=== PATIENT | male | born 1985 | race Caucasian/White ===

== ENCOUNTER 2019-02-14 20:57 | Emergency (ER) | payer BC ==
--- NOTE | 2019-02-14 21:30 | EDM.PDOC ---
ED HPI GENERAL MEDICAL PROBLEM - General Chief Complaint: Abdominal Pain Stated Complaint: BACK PAINS Time Seen by Provider: 02/14/19 21:30 Source of Information: Reports: Patient - History of Present Illness INITIAL COMMENTS - FREE TEXT/NARRATIVE: HISTORY AND PHYSICAL: History of present illness: [Patient presents with acute onset right lower quadrant pain radiating to the right flank which began one hour prior to arrival 8 out of 10 pain resolved on arrival No fever nausea vomiting chills sweats no chest pain shortness breath headache dizziness palpitation no bowel or urine symptoms at current no abdominal pain at current] Review of systems: As per history of present illness and below otherwise all systems reviewed and negative. Past medical history: As per history of present illness and as reviewed below otherwise noncontributory. Surgical history: As per history of present illness and as reviewed below otherwise noncontributory. Social history: No reported history of drug or alcohol abuse. Family history: As per history of present illness and as reviewed below otherwise noncontributory. Physical exam: HEENT: Atraumatic, normocephalic, pupils reactive, negative for conjunctival pallor or scleral icterus, mucous membranes moist, throat clear, neck supple, nontender, trachea midline. Lungs: Clear to auscultation, breath sounds equal bilaterally, chest nontender. Heart: S1S2, regular, negative for clicks, rubs, or JVD. Abdomen: Soft, nondistended, nontender. Negative for masses or hepatosplenomegaly. Negative for costovertebral tenderness. Pelvis: Stable nontender. Genitourinary: Deferred. Rectal: Deferred. Extremities: Atraumatic, negative for cords or calf pain. Neurovascular unremarkable. Neuro: Awake, alert, oriented. Cranial nerves II through XII unremarkable. Cerebellum unremarkable. Motor and sensory unremarkable throughout. Exam nonfocal. Diagnostics: [CBC CMP UA TIA abdomen pelvis no contrast ] Therapeutics: [Normal saline [place] The interim patient did pass a stone which will be sent for pathology l ] Impression: [ ureteral stone -passed Pain resolved] Definitive disposition and diagnosis as appropriate pending reevaluation and review of above. right lumbar abdomen Pain Score (Numeric/FACES): 3 - Related Data Allergies Allergy/AdvReac Type Severity Reaction Status Date / Time No Known Allergies Allergy Verified 02/14/19 21:29 Home Meds: Home Meds . [No Known Home Meds] 02/14/19 [History] ED ROS GENERAL - Review of Systems Review Of Systems: See Below ED EXAM, GENERAL - Physical Exam Exam: See Below Course - Vital Signs Last Recorded V/S: Last Vital Signs Temp 97.5 F 02/14/19 21:15 Pulse 55 L 02/14/19 21:15 Resp 18 02/14/19 21:15 BP 122/63 02/14/19 21:15 Pulse Ox 100 02/14/19 21:15 - Orders/Labs/Meds Orders: Active Orders 24 hr Category Date Time Status Abdomen Pelvis wo Cont [CT] Stat Exams 02/14/19 21:30 Taken COMPREHENSIVE METABOLIC PN,CMP [CHEM] Stat Lab 02/14/19 22:03 Received MISC TEST Stat Lab 02/14/19 21:48 Received Labs: Laboratory Tests 02/14/19 02/14/19 Range/Units 21:48 22:03 WBC 6.64 (4.0-11.0) K/uL RBC 4.40 L (4.50-5.90) M/uL Hgb 13.5 (13.0-17.0) g/dL Hct 39.7 (38.0-50.0) % MCV 90.2 (80.0-98.0) fL MCH 30.7 (27.0-32.0) pg MCHC 34.0 (31.0-37.0) g/dL RDW Std Deviation 42.3 (28.0-62.0) fl RDW Coeff of Kriss 13 (11.0-15.0) % Plt Count 169 (150-400) K/uL MPV 10.00 (7.40-12.00) fL Neut % (Auto) 73.6 (48.0-80.0) % Lymph % (Auto) 15.7 L (16.0-40.0) % [place] % (Auto) 9.8 (0.0-15.0) % Eos % (Auto) 0.6 (0.0-7.0) % Baso % (Auto) 0.3 (0.0-1.5) % Neut # (Auto) 4.9 (1.4-5.7) K/uL Lymph # (Auto) 1.0 (0.6-2.4) K/uL [place] # (Auto) 0.7 (0.0-0.8) K/uL Eos # (Auto) 0.0 (0.0-0.7) K/uL Baso # (Auto) 0.0 (0.0-0.1) K/uL Nucleated RBC % 0.0 /100WBC Nucleated RBCs # 0 K/uL Urine Color YELLOW Urine Appearance CLEAR Urine pH 5.5 (5.0-8.0) Ur Specific [place] >= 1.030 (1.001-1.035) Urine Protein NEGATIVE (NEGATIVE) mg/dL Urine Glucose (UA) NEGATIVE (NEGATIVE) mg/dL Urine Ketones 40 H (NEGATIVE) mg/dL Urine Occult Blood LARGE H (NEGATIVE) Urine Nitrite NEGATIVE (NEGATIVE) Urine Bilirubin NEGATIVE (NEGATIVE) Urine Urobilinogen 0.2 (<2.0) EU/dL Ur Leukocyte Esterase NEGATIVE (NEGATIVE) Urine RBC 1-2 (0-2/HPF) Urine WBC 0-1 (0-5/HPF) Ur Epithelial Cells RARE (NONE-FEW) Urine Bacteria RARE (NEGATIVE) Meds: Medications Discontinued Medications Generic Name Dose Route Start Last Admin Trade Name Freq PRN Reason Stop Dose Admin Sodium Chloride 1,000 mls @ 999 mls/hr 02/14/19 21:32 Normal Saline IV 02/14/19 22:32 STAT ONE Ketorolac Tromethamine 30 mg 02/14/19 21:32 Toradol IVPUSH 02/14/19 21:33 ONETIME ONE Departure - Departure Time of Disposition: 22:32 Disposition: Home, Self-Care 01 Condition: Good Clinical Impression: Ureteral stone - Discharge Information Referrals: PCP,None [Primary Care Provider] - Forms: ED Department Discharge Additional Instructions: The following information is given to patients seen in the emergency department who are being discharged to home. This information is to outline your options for follow-up care. We provide all patients seen in our emergency department with a follow-up referral. The need for follow-up, as well as the timing and circumstances, are variable depending upon the specifics of your emergency department visit. If you don't have a primary care physician on staff, we will provide you with a referral. We always advise you to contact your personal physician following an emergency department visit to inform them of the circumstance of the visit and for follow-up with them and/or the need for any referrals to a consulting specialist. The emergency department will also refer you to a specialist when appropriate. This referral assures that you have the opportunity for follow-up care with a specialist. All of these measure are taken in an effort to provide you with optimal care, which includes your follow-up. Under all circumstances we always encourage you to contact your private physician who remains a resource for coordinating your care. When calling for follow-up care, please make the office aware that this follow-up is from your recent emergency room visit. If for any reason you are refused follow-up, please contact the [facility] emergency department at and asked to speak to the emergency department charge nurse. - My Orders Last 24 Hours: My Active Orders 02/14/19 21:30 Abdomen Pelvis wo Cont [CT] Stat 02/14/19 21:48 MISC TEST Stat 02/14/19 22:03 COMPREHENSIVE METABOLIC PN,CMP [CHEM] Stat - Assessment/Plan Last 24 Hours: My Active Orders 02/14/19 21:30 Abdomen Pelvis wo Cont [CT] Stat 02/14/19 21:48 MISC TEST Stat 02/14/19 22:03 COMPREHENSIVE METABOLIC PN,CMP [CHEM] Stat
[2019-02-14] MEDS ORDERED: Ketorolac 30 MG/ML SDV IVPUSH ONE (21:32)
[2019-02-14] MEDS ORDERED: Sodium Chloride 0.9% 1,000 ML IV ONE (21:32)
[2019-02-14 22:36] LABS: BLOOD UREA NITROGEN,BUN 15 mg/dL (7.0-18.0); CHLORIDE,CL 106 mmol/L (98-107); GLUCOSE RANDOM 100 mg/dL (74-106); SODIUM,NA 143 mmol/L (136-148)
--- NOTE | 2019-02-14 22:39 | CT ---
INDICATION: right side flank pain INDICATION: Right-sided flank pain TECHNIQUE: CT abdomen and pelvis without contrast. COMPARISON: None FINDINGS: Lower chest: Right lower lobe atelectasis. Liver: Unremarkable. Spleen: Unremarkable. Pancreas: Unremarkable. Gallbladder and bile ducts: Unremarkable. Kidneys: No right-sided urinary tract stones or hydronephrosis. Punctate calculi mid zone left kidney. Adrenal glands: Unremarkable. GI tract: Diffuse colonic fecal retention. Appendix is normal. Vascular structures: Unremarkable. Lymph nodes: Unremarkable. Miscellaneous: Unremarkable. No free air or significant free fluid. Pelvic Organs: Unremarkable. Bones: Unremarkable for age. IMPRESSION: No right-sided urinary tract stones or hydronephrosis. Punctate calculi mid zone left kidney. Diffuse colonic fecal retention. Normal-appearing appendix. Dictated by Frandy Scanlon MD @ 02/14/2019 10:37:25 PM Please note that all CT scans at this facility use dose modulation, iterative reconstruction, and/or weight-based dosing when appropriate to reduce radiation dose to as low as reasonably achievable. Dictated by: Frandy Scanlon MD @ 02/14/2019 22:37:32 (Electronically Signed)
== END 2019-02-14 23:02 | disposition home or self-care (01) ==
LOC: MW.ED 20:57
DX: N20.2 Calculus of kidney with calculus of ureter (principal)
CPT/HCPCS: 36415; 74176; 74176-26; 80053; 81001; 82365; 85025; 99284-25